=== PATIENT | male | born 1970 | race Caucasian/White ===

== ENCOUNTER 2016-09-28 22:33 | Emergency (ER) | payer SELFPAY ==
[~2016-09-28] VITALS: Ht 175.3 cm; Wt 63.4 kg
[2016-09-28 23:19] LABS: HEMATOCRIT 41.1 % (39.0-50.0); HEMOGLOBIN 14.8 g/dl (14.0-18.0); IMMATURE GRANULOCYTES 0.3 % (0.0-1.0); MEAN CELL VOLUME 99.8 fL CALC (80.0-100.0); MEAN CORPUSCULAR HGB 35.9 pG CALC (26.0-32.0); NEUT# 2.55 thou/uL (1.82-7.42); RED BLOOD COUNT 4.12 mill/uL (4.70-6.10); RED CELL DISTRI WIDTH 11.2 % (11.5-15.5)
[2016-09-28 23:23] VITALS: BP 113/81
[2016-09-28 23:38] LABS: ACT PARTIAL THROMBO TIME 25.8 SECONDS (20.0-32.5)
[2016-09-28 23:39] LABS: ALBUMIN 4.5 g/dL (3.2-5.0); ALKALINE PHOSPHATASE 141 u/l (38-126); ANION GAP 20 (6-22 (CALC)); BILIRUBIN, TOTAL 1.6 mg/dL (0.0-1.4); BUN 2 mg/dL (9-20); BUN/CREATININE RATIO 5 (12-20 (CALC)); CALCIUM 9.2 mg/dL (8.4-10.2); CARBON DIOXIDE 22 mmol/l (22-30); CHLORIDE 102 mmol/l (95-108); CREATININE 0.5 mg/dL (0.7-1.3); ETHYL ALCOHOL 236 mg/dl (0-30); GFR > 60 ML/MIN (>=60 (CALC)); GFR FOR AFR.AMER. > 60 ML/MIN (>=60 (CALC)); GLUCOSE 94 mg/dL (75-110); POTASSIUM 4.1 mmol/l (3.5-5.1); SGOT/AST 188 u/l (17-59); SGPT/ALT 92 u/l (21-72); SODIUM 141 mmol/l (137-146)
[2016-09-28 23:49] LABS: MYOGLOBIN 20 ng/mL (0 - 121)
== END 2016-09-28 23:23 | disposition left against medical advice (07) | DRG 310 ==
LOC: ED 22:33
PROVIDERS: Emergency Medicine
DX: I47.1 Supraventricular tachycardia (principal); R00.2 Palpitations; Z91.19 Patient's noncompliance with other medical treatment and regimen

== ENCOUNTER 2016-11-01 12:52 | Emergency (ER) | payer SELFPAY ==
[~2016-11-01] VITALS: Ht 175.3 cm; Wt 63.6 kg
[2016-11-01 13:30] VITALS: BP 132/86
== END 2016-11-01 13:40 | disposition home or self-care (01) | DRG 310 ==
LOC: ED 12:52
DX: I47.1 Supraventricular tachycardia (principal)

== ENCOUNTER 2016-11-27 23:37 | Emergency (ER) | payer SELFPAY ==
[~2016-11-27] VITALS: Ht 175.3 cm; Wt 63.6 kg
[2016-11-28 00:23] VITALS: BP 110/86
== END 2016-11-28 00:23 | disposition left against medical advice (07) | DRG 310 ==
LOC: ED 23:37
DX: I47.1 Supraventricular tachycardia (principal); I48.91 Unspecified atrial fibrillation; F17.210 Nicotine dependence, cigarettes, uncomplicated; Z91.19 Patient's noncompliance with other medical treatment and regimen

== ENCOUNTER 2017-04-12 03:48 | Emergency (ER) | payer SELFPAY ==
[~2017-04-12] VITALS: Ht 175.3 cm; Wt 63.6 kg
[2017-04-12 04:13] VITALS: BP 110/60
== END 2017-04-12 04:15 | disposition left against medical advice (07) | DRG 310 ==
LOC: ED 03:48
DX: I47.1 Supraventricular tachycardia (principal); Z91.19 Patient's noncompliance with other medical treatment and regimen

== ENCOUNTER 2017-06-24 13:20 | Emergency (ER) | payer SELFPAY ==
[~2017-06-24] VITALS: Ht 175.3 cm; Wt 65.0 kg
[2017-06-24 13:40] VITALS: BP 127/99
== END 2017-06-24 13:43 | disposition left against medical advice (07) | DRG 310 ==
LOC: ED 13:20
DX: I47.1 Supraventricular tachycardia (principal); R06.02 Shortness of breath; Z91.19 Patient's noncompliance with other medical treatment and regimen; Z72.0 Tobacco use; Z72.89 Other problems related to lifestyle

== ENCOUNTER 2017-09-22 07:37 | Emergency (ER) | payer SELFPAY ==
[~2017-09-22] VITALS: Ht 175.3 cm; Wt 66.0 kg
[2017-09-22 08:15] VITALS: BP 133/77
[2017-09-22 08:35] LABS: HEMATOCRIT 41.3 % (39.0-50.0); HEMOGLOBIN 14.4 g/dl (14.0-18.0); IMMATURE GRANULOCYTES 0.2 % (0.0-1.0); MEAN CELL VOLUME 102.2 fL CALC (80.0-100.0); MEAN CORPUSCULAR HGB 35.6 pG CALC (26.0-32.0); MEAN CORPUSCULAR HGB CONC 34.9 g/L CALC (32.0-36.0); NEUT# 2.05 thou/uL (1.82-7.42); RED BLOOD COUNT 4.04 mill/uL (4.70-6.10); RED CELL DISTRI WIDTH 11.9 % (11.5-15.5)
[2017-09-22 08:50] LABS: ALBUMIN 4.2 g/dL (3.2-5.0); ALKALINE PHOSPHATASE 202 u/l (38-126); ANION GAP 21 (6-22 (CALC)); BILIRUBIN, TOTAL 1.7 mg/dL (0.0-1.4); BUN 5 mg/dL (9-20); BUN/CREATININE RATIO 7 (12-20 (CALC)); CARBON DIOXIDE 22 mmol/l (22-30); CHLORIDE 104 mmol/l (95-108); CREATININE 0.7 mg/dL (0.7-1.3); GFR > 60 ML/MIN (>=60 (CALC)); GFR FOR AFR.AMER. > 60 ML/MIN (>=60 (CALC)); POTASSIUM 4.1 mmol/l (3.5-5.1); SGOT/AST 211 u/l (17-59); SGPT/ALT 81 u/l (21-72); SODIUM 143 mmol/l (137-146); TOTAL PROTEIN 8.6 g/dL (6.3-8.2)
== END 2017-09-22 08:15 | disposition home or self-care (01) | DRG 310 ==
LOC: ED 07:37
PROVIDERS: Family Medicine
DX: I47.1 Supraventricular tachycardia (principal); F17.210 Nicotine dependence, cigarettes, uncomplicated

== ENCOUNTER 2017-09-29 09:10 | Emergency (ER) | payer SELFPAY ==
[~2017-09-29] VITALS: Ht 175.3 cm; Wt 70.0 kg
[2017-09-29 09:35] VITALS: BP 113/77
== END 2017-09-29 09:35 | disposition left against medical advice (07) | DRG 310 ==
LOC: ED 09:10
DX: I47.1 Supraventricular tachycardia (principal); F17.210 Nicotine dependence, cigarettes, uncomplicated; Z91.19 Patient's noncompliance with other medical treatment and regimen